=== PATIENT | male | born 1965 | race Caucasian/White ===

== ENCOUNTER → 2017-10-05 | Day surgery (SDC) | payer OTHER ==
[2017-09-30 13:31] LABS: BASOPHILS # (AUTO) 0.1 (0.0-0.1); BASOPHILS % 0.9 % (0.0-1.0); EOSINOPHILS # (AUTO) 0.8 (0.0-0.4); EOSINOPHILS % 5.3 % (0.0-6.0); HEMATOCRIT 45.4 % (38.2-49.6); LYMPHOCYTES # (AUTO) 3.1 (1.0-3.2); LYMPHOCYTES % 21.8 % (18.0-39.1); MEAN CORPUSCULAR HEMOGLOBIN 28.1 pg (28-32); MEAN CORPUSCULAR VOLUME 85.2 fL (81-99); MONOCYTES % 7.3 % (4.4-11.3); NEUTROPHILS # (AUTO) 9.1 (2.1-6.9); NEUTROPHILS % 64.3 % (38.7-80.0); PLATELET COUNT 397 x10e3/uL (140-360); RED BLOOD COUNT 5.33 x10e6/uL (4.3-5.7); RED CELL DISTRIBUTION WIDTH 13.8 % (11.7-14.4)
[~2017-10-05] MED LIST: ASPIR 8181 MG PO; ATORVASTATIN CA20 MG PO; CITALOPRAM PO; DULERA 100 MCG/13 GM INH; FENTANYL CITRATE/PF 100MCG/2 ML INJ ONE; LEVOTHYROXINE; LEVOTHYROXINE PO; LIDOCAINE HCL 2% LOCAL INJ 5 ML SDV VIAL INJ ONE; LOSARTAN POTASS25 MG PO; METOCLOPRAMIDE HCL 10 MG/2ML VIAL ONE; MIDAZOLAM HCL 2 MG/2 ML VIAL ONE; MULTIVITAMINS1 EAC8 PO; PANTOPRAZOLE 40 MG 10ML VIAL ONE; PANTOPRAZOLE SO40 MG PO; PAXIL40 MG PO; PRO AIR INH; PROPOFOL IV EMULSION 10 MG/ML 50 ML VIAL ONE; TESTOSTERONE
--- OUTSIDE RECORDS SUMMARY | 2017-10-05 07:25 | XMS REPORT | Clinical Summary ---
Author Author [facility] Organization [facility] Address Unknown Phone Unavailable Care Team Providers Care Granite Installer Name Role Phone Rudy Jung MD PCP Allergies No Known Allergies Current Medications Prescription Sig. Disp. Refills Start End Date Status Date levothyroxine (SYNTHROID, Take 100 mcg by mouth. Active LEVOXYL) 100 mcg tablet pantoprazole (PROTONIX) Take 40 mg by mouth. 04/23/20 Active 40 MG EC tablet 16 atorvastatin (LIPITOR) 80 Take 80 mg by mouth Active MG tablet daily. losartan (COZAAR) 25 MG Take 25 mg by mouth Active tablet daily. MOMETASONE/FORMOTEROL Inhale 5 mcg. Active (DULERA INHL) albuterol (PROAIR Inhale 2 puffs every 6 Active HFA,PROVENTIL (six) hours as needed for HFA,VENTOLIN HFA) 90 wheezing. mcg/actuation inhaler aspirin (ECOTRIN) 81 MG Take 81 mg by mouth Active enteric coated tablet daily. PARoxetine (PAXIL) 40 MG Take 40 mg by mouth every Active tablet morning. atorvastatin (LIPITOR) 80 Take 80 mg by mouth. 04/23/20 04/23/20 MG tablet 16 17 buPROPion XL (WELLBUTRIN TK 1 T PO QD IN THE 1 12/11/19 04/29/20 Discontin XL) 150 MG 24 hr tablet MORNING 17 17 ued clopidogrel (PLAVIX) 75 Take 75 mg by mouth. 04/29/20 Discontin mg tablet 17 ued ELIQUIS 5 mg tablet TK 1 T PO BID 3 11/17/19 04/29/20 Discontin 17 17 ued losartan (COZAAR) 25 MG Take 25 mg by mouth. 04/23/20 04/23/20 tablet 16 17 sotalol (BETAPACE) 80 MG TK 1 T PO BID 2 10/10/19 04/29/20 Discontin tablet 17 17 ued isosorbide mononitrate Take 30 mg by mouth 04/29/20 Discontin (IMDUR) 30 MG 24 hr daily. 17 ued tablet VENTOLIN HFA 90 INHALE 2 PUFFS PO QID 11 01/18/20 04/29/20 Discontin mcg/actuation inhaler 17 17 ued ADVAIR HFA 115-21 INHALE 2 PUFFS PO BID 11 01/10/20 04/29/20 Discontin mcg/actuation inhaler 17 17 ued predniSONE (DELTASONE) 10 1 01/22/20 04/29/20 Discontin mg tablet 17 17 ued PARoxetine (PAXIL) 20 MG Take 20 mg by mouth every 10/02/19 Discontin tablet morning. 18 ued aspirin (ECOTRIN) 81 MG Take 81 mg by mouth 05/12/20 Discontin enteric coated tablet daily. 17 ued traMADol (ULTRAM) 50 mg Take 1 tablet (50 mg 45 tablet 0 05/12/20 Discontin tablet total) by mouth every 6 17 17 ued (six) hours as needed for moderate pain for up to 14 days. acetaminophen (TYLENOL Take 1 tablet (500 mg 60 tablet 0 05/12/20 Discontin EXTRA STRENGTH) 500 MG total) by mouth every 6 17 ued tablet (six) hours as needed for mild pain for up to 30 days. traMADol (ULTRAM) 50 mg Take 1 tablet (50 mg 45 tablet 0 05/12/20 tablet total) by mouth every 6 17 17 (six) hours as needed for moderate pain for up to 14 days. acetaminophen (TYLENOL Take 1 tablet (500 mg 60 tablet 0 05/12/20 EXTRA STRENGTH) 500 MG total) by mouth every 6 17 tablet (six) hours as needed for mild pain for up to 30 days. Active Problems Problem Noted Date Coronary artery disease 10/01/2017 Overview: H/o STEMI S/P PCI Shortness of breath 10/01/2017 ST elevation myocardial infarction (STEMI) Stented coronary artery Cancer Overview: lymphoma Encounters Date Type Specialty Care Team Description 10/01/2017 Hospital Radiology Pedro Barbour MD Arrived Encounter 10/01/2017 Office Visit Cardiothoracic Surgery Pedro Barbour MD LAD (lymphadenopathy), mediastinal (Primary Dx); H/O non-Hodgkin's lymphoma; Pre-op testing; History of palpitations; Shortness of breath 10/01/2017 Ancillary Radiology Pedro Barbour MD Orders 10/01/2017 Orders Only Cardiothoracic Surgery Cielo Núñez MD 08/11/2017 [facility] Radiology Chintan Hooper MD [place] Encounter esophageal sphincter; Cough 08/04/2017 Transcribe Access Chintan Hooper MD [place] Orders esophageal sphincter (Primary Dx); Cough 07/13/2017 Hospital Radiology Chintan Hooper MD Pulmonary infarction; Encounter Shortness of breath 07/09/2017 Transcribe Chintan Cuevas MD Pulmonary infarction Orders (Primary Dx); Shortness of breath 06/11/2017 Office Visit Cardiothoracic Surgery Pedro Barbour MD Visit for wound check (Primary Dx) 05/18/2017 Telephone Cardiothoracic Surgery Pedro Barbour MD 05/12/2017 [facility] Cardiothoracic Surgery Pedro Barbour MD Lymphadenopathy syndrome Encounter 05/12/2017 Anesthesia Cardiothoracic Surgery Julissa Erazo MD Event 05/12/2017 Procedure Pass Cardiothoracic Surgery 05/12/2017 Surgery Cardiothoracic Surgery Pedro Barbour MD MEDIASTINOSCOPY W/ BIOPSY, 05/07/2017 Lab Lab Pedro Barbour MD LAD (lymphadenopathy), mediastinal; Pre-op testing 05/07/2017 Office Visit Cardiothoracic Surgery Pedro Barbour MD LAD (lymphadenopathy), mediastinal (Primary Dx); Pre-op testing 05/04/2017 Orders Only Cardiothoracic Surgery Cielo Núñez MD 04/29/2017 [facility] Ophthalmology Sriram Acosta, Encounter MD 04/29/2017 Anesthesia Ophthalmology Michael Nettles MD Event 04/29/2017 Procedure Pass Ophthalmology 04/29/2017 Surgery Ophthalmology Sriram Acosta, BRONCHOSCOPY WITH EBUS & MD BIOPSY 03/05/2017 [facility] Cardiac Rehabilitation Denny Ruiz MD Encounter 03/04/2017 [facility] Cardiac Rehabilitation Denny Ruiz MD Encounter 03/03/2017 Office Visit Sports Kelin Nicole MD Primary osteoarthritis of both shoulders (Primary Dx); Disorder of right rotator cuff 02/27/2017 Telephone Sports Kelin Nicole MD 02/18/2017 Hospital Cardiac Rehabilitation Denny Ruiz MD Encounter 02/17/2017 Hospital Radiology Kelin Javier MD Disorder of rotator cuff Encounter of both shoulders; Primary osteoarthritis of left shoulder 02/17/2017 Hospital Radiology Kelin Javier MD Disorder of rotator cuff Encounter of both shoulders; Primary osteoarthritis of left shoulder 02/16/2017 Hospital Cardiac Rehabilitation Encounter 02/12/2017 Hospital Cardiac Rehabilitation Encounter 02/11/2017 Hospital Cardiac Rehabilitation Encounter 02/11/2017 Procedure Pass Radiology 02/11/2017 Procedure Pass Radiology 02/10/2017 Office Visit Sports Kelin Nicole MD Disorder of rotator cuff of both shoulders (Primary Dx); Primary osteoarthritis of left shoulder 02/09/2017 Hospital Cardiac Rehabilitation Encounter 02/09/2017 Documentation Sports Kelin Nicole MD 02/05/2017 Hospital Cardiac Rehabilitation Encounter 02/04/2017 Hospital Cardiac Rehabilitation Encounter 02/02/2017 Hospital Cardiac Rehabilitation Encounter 01/28/2017 Hospital Cardiac Rehabilitation Denny Ruiz MD Encounter 01/15/2017 Transcribe Cardiac Rehabilitation Denny Ruiz MD ST elevation myocardial Orders infarction (STEMI), unspecified artery (Primary Dx); Stented coronary artery 01/13/2017 [facility] Radiology Chintan Hooper MD Diaphragmatic paralysis Encounter 01/09/2017 Transcribe Access Chintan Hooper MD Diaphragmatic paralysis Orders (Primary Dx) 12/23/2016 Office Visit Sports Kelin Nicole MD Disorder of rotator cuff of both shoulders (Primary Dx); Bilateral shoulder pain, unspecified chronicity after 10/04/2016 Family History Medical History Relation Name Comments Heart disease Brother Thomas Babcock Diabetes Father Diabetes Mother Heart disease Mother Relation Name Status Comments Brother Thomas Babcock Father Mother Social History Tobacco Use Types Packs/Day Years Used Date Never Smoker Smokeless Tobacco: Never Used Alcohol Use Drinks/Week oz/Week Comments Yes Socially Sex Assigned at Date Recorded Not on file Last Filed Vital Signs Vital Sign Reading Time Taken Blood Pressure 127/84 10/01/2017 2:20 PM CDT Pulse 94 10/01/2017 2:20 PM CDT Temperature 37.1 C (98.7 F) 10/01/2017 2:20 PM CDT Respiratory Rate 15 10/01/2017 2:20 PM CDT Oxygen Saturation 94% 10/01/2017 2:20 PM CDT Inhaled Oxygen - - Concentration Weight 102 kg (224 lb) 10/01/2017 2:20 PM CDT Height 172.7 cm (5' 8") 10/01/2017 2:20 PM CDT Body Mass Index 34.06 10/01/2017 2:20 PM CDT Plan of Treatment Date Type Specialty Care Team Description 10/28/2017 Surgery Cardiothoracic Surgery Pedro Barbour MD RIGHT ROBOTIC ASSISTED [address] [facility] THORACOSCOPIC MEDIASTINAL [address] [place] [address] BIOPSY-DISSECTION, FLEXIBLE BRONSCOPY 10/28/2017 Procedure Pass Cardiothoracic Surgery 10/28/2017 [facility] Cardiothoracic Surgery Pedro Barbour MD Encounter [address] [facility] [address] [place], [place] [id number] Health Maintenance Due Date Last Done Comments COLONOSCOPY 2016 INFLUENZA VACCINE 01/27/2018 Procedures Procedure Name Priority Date/Time Associated Diagnosis Comments NV AN ELECTIVE Routine 05/12/2017 ENDOTRACHEAL AIRWAY 9:33 AM RECOVERY ROOM RN Procedure Note - Shivani Dominique MD - 05/12/2017 8:46 AM RECOVERY ROOM RN Airway Date/Time: 05/12/2017 7:35 AM Performed by: SHIVANI DOMINIQUE V Authorized by: SHIVANI DOMINIQUE V Urgency: Elective Difficult Airway: Yes Preoxygena noy with 100% O2: Yes C-spine Precaution s Maintained Throughout : No Mask Ventilatio n: Assisted mask Final Airway Type: Endotrache al airway Final Endotrache al Airway: ETT Cuffed: Yes Technique Used: Fiberoptic ETT Size (mm): 8.0 Cuff at minimum occlusion pressure: Yes Measured from: Lips Rapid Sequence Induction (RSI): No Grade IIB with DL, Proceeded to Video laryngosco py, able to put the tube in the trachea for approx 3 cms however unable to advance further. Patient intubated by with fibreoptic bronchosco pe. Trachea may be a little anterior below the cords leading to difficulty in advancemen t ARTERIAL LINE Routine 05/12/2017 8:50 AM RECOVERY ROOM RN Procedure Note - Shivani Dominique MD - 05/12/2017 8:49 AM RECOVERY ROOM RN Arterial line Performed by: SHIVANI DOMINIQUE V Authorized by: SHIVANI DOMINIQUE V Start Time: 05/12/2017 8:00 AM Staff: Anesthesio logist: SHIVANI DOMINIQUE V Pre-proced ure: patient identified , IV checked, site and side verified, risks and benefits discussed, procedure verified, surgical consent complete, patient position confirmed, monitors and equipment checked and pre-op evaluation complete MSBT: antiseptic used, all elements of maximal sterile barrier technique followed, hand hygiene performed, cap/gown used by other personnel and solutions labeled Indication s: Indication s: multiple ABGs Anesthesia : Anesthesia : General Procedure Details: Arterial Line placement: Placed post induction Line placement site: Radial Line placement side: Right Arterial line gauge: 20 G Number of attempts: 1 Ultrasound guidance used: No Post-proce dure: Post-proce dure: Sterile dressing applied Post procedure circulatio n, sensation, movement: Normal Patient tolerance: Patient tolerated the procedure well with no immediate complicati ons NV AN ELECTIVE Routine 04/29/2017 SUPRAGLOTTIC AIRWAY 8:49 AM CDT Procedure Note - Michael Nettles MD - 04/29/2017 8:49 AM CDT Airway Date/Time: 04/29/2017 8:43 AM Performed by: MICHAEL NETTLES Authorized by: MICHAEL NETTLES Location: OR Urgency: Elective Performed by: anesthesio logist Preoxygena noy with 100% O2: Yes Final Airway Type: Supraglott ic airway Final LMA: Classic LMA Size: 5 Number of Attempts at Approach: 1 BRONCHOSCOPY WITH EBUS & 04/29/2017 Lymphadenopathy, BIOPSY 8:00 AM CDT mediastinal after 10/04/2016 Results * PET/CT Whole Body External Study (09/08/2017 12:37 PM) Specimen Performing Laboratory [address] [address] Narrative This exam was not acquired at a [facility] facility and has not been interpreted by a [facility] Provider.The exam was imported into our imaging system for comparisons purposes. * PET/CT Skull Base Mid Thigh External Study (09/08/2017) Only the most recent of 2 results within the time period is included. * FL Esophagram Complete (08/11/2017 9:12 AM) Specimen Performing Laboratory [facility] [address] [place] [address] Narrative EXAMINATION:FL ESOPHAGRAM COMPLETE CLINICAL HISTORY:K21.9 Gastro-esophageal reflux disease without esophagitis , R05 Cough, R05 K21.9 COMPARISON:None. Fluoroscopy time: 1.1 FINDINGS: The patient swallowed air producing granules and barium without difficulty. The esophagus demonstrates normal motility. No focal mucosal abnormality is identified. There is mild narrowing at distal esophagus/gastroesophageal junction.There is mild diffuse thickening of esophageal folds. There is no evidence of gastroesophageal reflux or hiatal hernia. IMPRESSION: There is minimal narrowing at distal esophagus/gastroesophageal junction and mild thickening of the esophageal folds without suspicious focal mucosal thickening. Please correlate to endoscopic findings. [id number] Procedure Note Interface, Radiology Results Incoming - 08/12/2017 8:55 AM RECOVERY ROOM RN EXAMINATION: FL ESOPHAGRAM COMPLETE CLINICAL HISTORY: K21.9 Gastro-esophageal reflux disease without esophagitis, R05 Cough, R05 K21.9 COMPARISON: None. Fluoroscopy time: 1.1 FINDINGS: The patient swallowed air producing granules and barium without difficulty. The esophagus demonstrates normal motility. No focal mucosal abnormality is identified. There is mild narrowing at distal esophagus/gastroesophageal junction. There is mild diffuse thickening of esophageal folds. There is no evidence of gastroesophageal reflux or hiatal hernia. IMPRESSION: There is minimal narrowing at distal esophagus/gastroesophageal junction and mild thickening of the esophageal folds without suspicious focal mucosal thickening. Please correlate to endoscopic findings. [id number] * CTA Chest W Wo Contrast (07/13/2017 7:48 AM) Specimen Performing Laboratory [facility] [address] [place] [address] Narrative EXAMINATION:CT ANGIOGRAM CHEST W WO CONTRAST CLINICAL HISTORY:I26.99 Other pulmonary embolism without acute cor pulmonale , R06.02 Shortness of breath, sob TECHNIQUE: Multiple CT angiographic images of the chest were obtained during intravenous administration of contrast. Multiple computerized reformatted images as well as 3-D volume rendered images were also obtained. CT scans are performed using radiation dose reduction techniques. Technical factors are evaluated and adjusted to ensure appropriate moderation of exposure. Automated dose management technology is applied to adjust radiation exposure while achieving a diagnostic quality image. COMPARISON:None. IMPRESSION: No evidence of pulmonary thromboembolism level of the subsegmental arteries on this technically adequate study. Mild scarring and/or linear atelectasis within the lung bases. No significant infiltrate, consolidation, pleural effusion or pneumothorax. A few scattered calcified granulomata. No suspicious pulmonary nodules or masses. Visualized thyroid is unremarkable. No significant supraclavicular, axillary, mediastinal adenopathy. Mild cardiomegaly. No pericardial effusion. Thoracic aorta and main pulmonary artery demonstrate normal caliber. Cholelithiasis without evidence of cholecystitis. Calcified granulomata within the spleen. Mild osseous degenerative changes. [id number] Procedure Note Hm Interface, Radiology Results Incoming - 07/13/2017 8:17 AM RECOVERY ROOM RN EXAMINATION: CT ANGIOGRAM CHEST W WO CONTRAST CLINICAL HISTORY: I26.99 Other pulmonary embolism without acute cor pulmonale, R06.02 Shortness of breath, sob TECHNIQUE: Multiple CT angiographic images of the chest were obtained during intravenous administration of contrast. Multiple computerized reformatted images as well as 3-D volume rendered images were also obtained. CT scans are performed using radiation dose reduction techniques. Technical factors are evaluated and adjusted to ensure appropriate moderation of exposure. Automated dose management technology is applied to adjust radiation exposure while achieving a diagnostic quality image. COMPARISON: None. IMPRESSION: No evidence of pulmonary thromboembolism level of the subsegmental arteries on this technically adequate study. Mild scarring and/or linear atelectasis within the lung bases. No significant infiltrate, consolidation, pleural effusion or pneumothorax. A few scattered calcified granulomata. No suspicious pulmonary nodules or masses. Visualized thyroid is unremarkable. No significant supraclavicular, axillary, mediastinal adenopathy. Mild cardiomegaly. No pericardial effusion. Thoracic aorta and main pulmonary artery demonstrate normal caliber. Cholelithiasis without evidence of cholecystitis. Calcified granulomata within the spleen. Mild osseous degenerative changes. [id number] * POC creatinine (07/13/2017 7:18 AM) Component Value Ref Range POC creatinine 1.0 0.8 - 1.5 mg/dl Specimen Performing Laboratory Blood [facility] DEPARTMENT OF PATHOLOGY AND GENOMIC MEDICINE [address] [place] [address] * Surgical pathology request (05/12/2017 9:25 AM) Component Value Ref Range Surgical pathology report See link below for PDF Lab Report Specimen Performing Laboratory [facility] PATHOLOGY [facility] MEDICINE [address] [place] [address] * Sodium level, syringe (05/12/2017 8:34 AM) Only the most recent of 2 results within the time period is included. Component Value Ref Range Sodium, syringe 137 135 - 148 mEq/L Specimen Performing Laboratory Blood [facility] PATHOLOGY AND [facility] MEDICINE [address] [place] [address] * Potassium, syringe (05/12/2017 8:34 AM) Only the most recent of 2 results within the time period is included. Component Value Ref Range Potassium, syringe 3.8 3.5 - 5.0 mEq/L Specimen Performing Laboratory Blood [facility] [place] [address] * Ionized calcium, arterial (05/12/2017 8:34 AM) Only the most recent of 2 results within the time period is included. Component Value Ref Range Ionized calcium, arterial 1.08 (L) 1.11 - 1.32 mmol/L Specimen Performing Laboratory Blood [facility] OF PATHOLOGY AND [facility] MEDICINE [address] [place] [address] * Hemoglobin, syringe (05/12/2017 8:34 AM) Only the most recent of 2 results within the time period is included. Component Value Ref Range Hemoglobin, syringe 13.3 (L) 14.0 - 18.0 g/dL Specimen Performing Laboratory Blood [facility] [place] [address] * Glucose level, syringe (05/12/2017 8:34 AM) Only the most recent of 2 results within the time period is included. Component Value Ref Range Glucose, syringe 117 (H) 65 - 99 mg/dL Specimen Performing Laboratory Blood [facility] [place] [address] * Arterial blood gas, corrected (05/12/2017 8:34 AM) Only the most recent of 2 results within the time period is included. Component Value Ref Range pH, arterial 7.38 7.35 - 7.45 pCO2, arterial 44 35 - 45 mmHg pO2, arterial 322 (H) 80 - 90 mmHg Temperature, Celsius 37.0 Degrees C O2 saturation, arterial 99 95 - 100 % pH, arterial corrected 7.38 pCO2, arterial corrected 44 mmHg pO2, arterial corrected 322 mmHg Base excess, arterial 0 -2 - 2 mEq/L Specimen Performing Laboratory Blood [facility] DEPARTMENT OF PATHOLOGY AND GENOMIC MEDICINE [address] [place] [address] * Prepare RBC (05/07/2017 3:15 PM) Component Value Ref Range Product name Red Blood Cells -1, Leukored Unit number [id number] Product code [id number] Dispense status Returned to not transfused Blood expiration date 20170618 Blood type code 7300 Blood type B POSITIVE Product name Red Blood Cells -1, Leukored Unit number [id number] Product code [id number] Dispense status Returned to not transfused Blood expiration date 20170618 Blood type code 7300 Blood type B POSITIVE Specimen Performing Laboratory [facility] DEPARTMENT OF PATHOLOGY AND GENOMIC MEDICINE [address] [place] [address] * Type and screen (05/07/2017 3:15 PM) Component Value Ref Range ABO grouping B Rh type POS Antibody screen (gel) NEG Specimen Performing Laboratory Blood [facility] DEPARTMENT OF PATHOLOGY AND GENOMIC MEDICINE [address] [place] [address] * Cytology (non-gynecological) request (04/29/2017 5:10 PM) Only the most recent of 3 results within the time period is included. Component Value Ref Range Cytology See link below for PDF Lab Report (non-gynecological) report Specimen Performing Laboratory [facility] DEPARTMENT OF PATHOLOGY AND GENOMIC MEDICINE [address] [place] [address] * Flow cytometry evaluation (04/29/2017 5:00 PM) Component Value Ref Range Flow cytometry evaluation See link below for PDF Lab Report Specimen Performing Laboratory [facility] DEPARTMENT OF PATHOLOGY AND GENOMIC MEDICINE [address] [place] [address] * POC panel 4 (04/29/2017 8:14 AM) Component Value Ref Range POC sodium 138Comment: Testing performed on the ISTAT 135 - 148 mEq/L instrument by TAMARA Tech [id number] POC potassium 3.6 3.5 - 5.0 mEq/L POC hematocrit 48 41 - 51 % POC glucose 109 (H) 65 - 99 mg/dL Specimen Performing Laboratory [facility] DEPARTMENT OF PATHOLOGY AND GENOMIC MEDICINE [address] [place] [address] * Prothrombin time with INR, I-Stat (04/29/2017 8:09 AM) Component Value Ref Range POC prothrombin time 12.0Comment: Testing performed on the ISTAT 11.0 - 14.5 sec instrument by TAMARA Zelaya [id number] POC INR 1.0 Comment: The International Normalized Ratio (INR) is a therapeutic monitoring tool for patients who are stable on oral anticoagulant therapy. An INR of 2.0-3.0 is suggested for deep vein thrombosis/pulmonary embolism. Specimen Performing Laboratory Blood [facility] DEPARTMENT OF PATHOLOGY AND GENOMIC MEDICINE [address] [place] [id number] * ECG 12 lead (04/29/2017 7:13 AM) Component Value Ref Range Ventricular rate 84 Atrial rate 84 NV interval 152 QRSD interval 88 QT interval 374 QTC interval 441 P axis 1 65 QRS axis 1 17 T wave axis 35 EKG impression Normal sinus rhythm-Normal ECG-In automated comparison with ECG of 29-JUL-2015 22:54,-premature atrial complexes are no longer present- Specimen Performing Laboratory [facility] [address] [place] [address] * Estimated GFR (04/29/2017 7:00 AM) Component Value Ref Range GFR Non Af Amer 71 mL/min/1.73 m2 GFR Af Amer 86 mL/min/1.73 m2 Comment: Chronic kidney disease: <60 mL/min/1.73m2 Kidney failure: <15 mL/min/1.73m2 The estimated GFR is calculated from the IDMS-traceable Modification of Diet in Renal Disease Equation. The accuracy of the calculation is poor when the creatinine is normal. Calculated values >90 mL/min/1.73m2 are not reported. This equation has not been validated in children (<18 years), women, the elderly (>70 years), or ethnic groups other than Caucasians and Americans. Specimen Performing Laboratory Plasma specimen [facility] DEPARTMENT OF PATHOLOGY AND GENOMIC MEDICINE [address] [place] [address] * Partial thromboplastin time, activated (04/29/2017 7:00 AM) Component Value Ref Range PTT 30.4 23.0 - 36.0 sec Comment: PTT therapeutic range for unfractionated heparin is 61.0-112.0 seconds which corresponds to Anti-Xa 0.3-0.7 U/ml. Specimen Performing Laboratory Blood [facility] DEPARTMENT OF PATHOLOGY AND [facility] MEDICINE [address] [place] [address] * Prothrombin time with INR (04/29/2017 7:00 AM) Component Value Ref Range Prothrombin time 13.6 12.0 - 15.0 sec INR 1.0 Comment: The International Normalized Ratio (INR) is a therapeutic monitoring tool for patients who are stable on oral anticoagulant therapy. An INR of 2.0-3.0 is suggested for deep vein thrombosis/pulmonary embolism. Specimen Performing Laboratory Blood [facility] PATHOLOGY AND [address] [address] * CBC with platelet and differential (04/29/2017 7:00 AM) Component Value Ref Range WBC 10.56 4.50 - 11.00 k/uL RBC 5.44 4.40 - 6.00 m/uL HGB 15.9 14.0 - 18.0 g/dL HCT 46.9 41.0 - 51.0 % MCV 86.2 82.0 - 100.0 fL MCH 29.2 27.0 - 34.0 pg MCHC 33.9 31.0 - 37.0 g/dL RDW - SD 40.6 37.0 - 55.0 fL MPV 10.1 8.8 - 13.2 fL Platelet count 340 150 - 400 k/uL Nucleated RBC 0.00 /100 WBC Neutrophils 64.2 39.0 - 69.0 % Lymphocytes 20.5 (L) 25.0 - 45.0 % Monocytes 10.3 (H) 0.0 - 10.0 % Eosinophils 3.6 0.0 - 5.0 % Basophils 0.7 0.0 - 1.0 % Immature granulocytes 0.7Comment: "Immature granulocytes" 0.0 - 1.0 % (promyelocytes, myelocytes, metamyelocytes) Specimen Performing Laboratory Blood [facility] DEPARTMENT OF PATHOLOGY AND [address] [address] * Basic metabolic panel (04/29/2017 7:00 AM) Component Value Ref Range Sodium 141 135 - 148 mEq/L Potassium 3.9 3.5 - 5.0 mEq/L Chloride 102 98 - 112 mEq/L CO2 24 24 - 31 mEq/L Anion gap 15 7 - 15 mEq/L Comment: Starting from September , anion gap calculation no longer incorporates potassium. Please note the change. BUN 19 6 - 20 mg/dL Creatinine 1.1 0.7 - 1.2 mg/dL Glucose 108 (H) 65 - 99 mg/dL Calcium 8.9 8.3 - 10.2 mg/dL Specimen Performing Laboratory Plasma specimen [facility] DEPARTMENT OF PATHOLOGY AND GENOMIC MEDICINE [address] [place] [id number] * MRI Shoulder Wo Contrast Right (02/17/2017 4:35 PM) Specimen Performing Laboratory [facility] [address] [place] [address] Narrative Procedure:MRI SHOULDER WO CONTRAST RIGHT REFERRING PHYSICIAN:KELIN JAVIER HISTORY: Persistent shoulder pain, despite physical therapy and injection. Unspecified disorder of synovium and tendonright shoulder, M67.912 Unspecified disorder of synovium and tendonleft shoulder, Persisting shoulder pain despite physical therapy and injection. COMPARISON: None TECHNIQUE: Multiplanar and multisequence MRI were obtained of the [facility]. FINDINGS: ROTATOR CUFF and ASSOCIATED STRUCTURES: Rotator cuff: Thickened and heterogeneous increased signal intensity are seen of the supraspinatus tendon, infraspinatus tendon and subscapularis tendon, suggestive of tendinosis. There is no full-thickness or bursal/articular surface partial rotator cuff tear. The subscapularis constinuent of the rotator cuff is intact. Bursa: No bursal effusion or thickening is seen. Musculature: There is no muscular tear, contusion or atrophy. Acromioclavicular joint: Moderate degenerative changes of the AC joint with inferior spurring causing encroachment on the rotator cuff.. A type I acromial configuration is noted. There is no anterior or lateral acromial downsloping. OSSEOUS STRUCTURES: Subchondral fibrocystic changes of the humeral head is noted. There are no fracture or regions of abnormal bone marrow signal intensity. THE BICIPITAL TENDON: The biceps tendon is normally situated within the bicipital groove. No complete or partial biceps tendon tear is seen. GLENOHUMERAL JOINT: Joint fluid: No joint effusion. Cartilage and bone: No focal hyaline cartilage defects are noted. No Hill-Sachs , reverse Hill-Sachs or bony Bankart lesions are seen. Labrum: There are no SLAP or soft tissue Bankart lesions. No paralabral cyst is seen. Other support structures: Thickening of the inferior glenohumeral ligament is seen, suggestive of adhesive capsulitis.. OTHER FINDINGS: None. IMPRESSION: Finding suggesting of tendinosis of the rotator cuff. Findings suggestive of adhesive capsulitis of the right shoulder. Moderate AC joint arthropathy causing encroachment on the rotator cuff. No MRI evidence of rotator cuff tear or labral tear.. [facility]-[id number] Procedure Note Interface, Radiology Results - 02/17/2017 6:36 PM CDT Procedure:MRI SHOULDER WO CONTRAST RIGHT REFERRING PHYSICIAN:KELIN JAVIER HISTORY: Persistent shoulder pain, despite physical therapy and injection. Unspecified disorder of synovium and tendon right shoulder, M67.912 Unspecified disorder of synovium and tendon left shoulder, Persisting shoulder pain despite physical therapy and injection. COMPARISON: None TECHNIQUE: Multiplanar and multisequence MRI were obtained of the [facility]. FINDINGS: ROTATOR CUFF and ASSOCIATED STRUCTURES: Rotator cuff: Thickened and heterogeneous increased signal intensity are seen of the supraspinatus tendon, infraspinatus tendon and subscapularis tendon, suggestive of tendinosis. There is no full-thickness or bursal/articular surface partial rotator cuff tear. The subscapularis constinuent of the rotator cuff is intact. Bursa: No bursal effusion or thickening is seen. Musculature: There is no muscular tear, contusion or atrophy. Acromioclavicular joint: Moderate degenerative changes of the AC joint with inferior spurring causing encroachment on the rotator cuff.. A type I acromial configuration is noted. There is no anterior or lateral acromial downsloping. OSSEOUS STRUCTURES: Subchondral fibrocystic changes of the humeral head is noted. There are no fracture or regions of abnormal bone marrow signal intensity. THE BICIPITAL TENDON: The biceps tendon is normally situated within the bicipital groove. No complete or partial biceps tendon tear is seen. GLENOHUMERAL JOINT: Joint fluid: No joint effusion. Cartilage and bone: No focal hyaline cartilage defects are noted. No Hill-Sachs , reverse Hill-Sachs or bony Bankart lesions are seen. Labrum: There are no SLAP or soft tissue Bankart lesions. No paralabral cyst is seen. Other support structures: Thickening of the inferior glenohumeral ligament is seen, suggestive of adhesive capsulitis.. OTHER FINDINGS: None. IMPRESSION: Finding suggesting of tendinosis of the rotator cuff. Findings suggestive of adhesive capsulitis of the right shoulder. Moderate AC joint arthropathy causing encroachment on the rotator cuff. No MRI evidence of rotator cuff tear or labral tear.. [facility]-[id number] * MRI Shoulder Wo Contrast Left (02/17/2017 4:02 PM) Specimen Performing Laboratory [facility] [address] [place] [id number] Narrative EXAMINATION:MRI SHOULDER WO CONTRAST LEFT CLINICAL HISTORY:M67.911 Unspecified disorder of synovium and tendon right shoulder, M67.912 Unspecified disorder of synovium and tendonleft shoulder, Persisting shoulder pain despite subacromial injection and physical therapy. Acromioclavicular pathology versus rotator cuff tear. TECHNIQUE:Multiplanar multisequence MR imaging of the shoulder was performed following dilute intra-articular administration of gadolinium. COMPARISON:X-rays a 12/23/2016 FINDINGS: 1. Rotator cuff: Intact. The supraspinatus, infraspinatus, subscapularis and teres minor tendons intact. 2. Bursa: Minimal subacromial bursal fluid and inflammatory change. 3. Biceps tendon: Long head of the biceps tendon is intact. Disproportionate fluid around the extra articular biceps tendon can be seen with biceps tenosynovitis. 4. Labrum: Signal undercutting the superior labrum posterior to the biceps anchor likely represents a superior labral tear. The remainder of the labrum is intact. 5. AC joint: Moderate AC joint osteoarthritis with capsular hypertrophy as well as AC joint edema and mass effect and narrowing of the supraspinatus outlet. Findings can be associated with external impingement. 6. Glenohumeral joint: Intact. Satisfactory alignment. Osseous glenoid intact. 7. Articular cartilage: Articular cartilage intact. 8. Joint Fluid:No joint effusion. Physiologic joint fluid. 9. Bone marrow: Moderate AC joint degenerative edema as well as small AC joint effusion. 10. Soft tissues: No mass, fluid collection or hematoma. IMPRESSION: 1.Moderate AC joint osteoarthritis, inflammatory change with minimal bursal fluid. Correlate with External impingement. 2.Extra-articular biceps tenosynovitis. 3.Probable superior labral tear. [facility]-[id number] Procedure Note Interface, Radiology Results - 02/17/2017 4:45 PM CDT EXAMINATION: MRI SHOULDER WO CONTRAST LEFT CLINICAL HISTORY: M67.911 Unspecified disorder of synovium and tendon right shoulder, M67.912 Unspecified disorder of synovium and tendon left shoulder, Persisting shoulder pain despite subacromial injection and physical therapy. Acromioclavicular pathology versus rotator cuff tear. TECHNIQUE: Multiplanar multisequence MR imaging of the shoulder was performed following dilute intra-articular administration of gadolinium. COMPARISON: X-rays a 12/23/2016 FINDINGS: 1. Rotator cuff: Intact. The supraspinatus, infraspinatus, subscapularis and teres minor tendons intact. 2. Bursa: Minimal subacromial bursal fluid and inflammatory change. 3. Biceps tendon: Long head of the biceps tendon is intact. Disproportionate fluid around the extra articular biceps tendon can be seen with biceps tenosynovitis. 4. Labrum: Signal undercutting the superior labrum posterior to the biceps anchor likely represents a superior labral tear. The remainder of the labrum is intact. 5. AC joint: Moderate AC joint osteoarthritis with capsular hypertrophy as well as AC joint edema and mass effect and narrowing of the supraspinatus outlet. Findings can be associated with external impingement. 6. Glenohumeral joint: Intact. Satisfactory alignment. Osseous glenoid intact. 7. Articular cartilage: Articular cartilage intact. 8. Joint Fluid:No joint effusion. Physiologic joint fluid. 9. Bone marrow: Moderate AC joint degenerative edema as well as small AC joint effusion. 10. Soft tissues: No mass, fluid collection or hematoma. IMPRESSION: 1. Moderate AC joint osteoarthritis, inflammatory change with minimal bursal fluid. Correlate with External impingement. 2. Extra-articular biceps tenosynovitis. 3. Probable superior labral tear. 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 TECHNIQUE: Diaphragms were observed under fluoroscopy during quiet and deep breathing and with sniff testing. FLUOROSCOPIC TIME:0.6 minutes. 6 spot films were obtained. FINDINGS: There is appropriate movement of the hemidiaphragms throughout the exam. No paradoxical motion. IMPRESSION: No fluoroscopic evidence of diaphragmatic paralysis. 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 TECHNIQUE: Diaphragms were observed under fluoroscopy during quiet and deep breathing and with sniff testing. FLUOROSCOPIC TIME: 0.6 minutes. 6 spot films were obtained. FINDINGS: There is appropriate movement of the hemidiaphragms throughout the exam. No paradoxical motion. IMPRESSION: No fluoroscopic evidence of diaphragmatic paralysis. [id number] * XR Shoulders Bilateral (12/23/2016 3:25 PM) Specimen Performing Laboratory [facility] [address] [place] [address] Narrative 8 views of the bilateral shoulders show no acute fractures. The glenohumeral joint appears normal bilaterally. There is widening of the superior aspect of the left acromioclavicular joint concerning for osteolysis in this location. after 10/04/2016 Insurance Payer Benefit Subscriber ID Type Phone Address Plan / Group [facility] xxxxxxxxx HMO/PPO THCARE CHOICE/CHO ICE +
--- OUTSIDE RECORDS SUMMARY | 2017-10-05 07:25 | XMS REPORT | Clinical Summary ---
Author Author [facility] Organization [facility] Address Unknown Phone Unavailable Care Team Providers Care Commercial Singer Name Role Phone PCP Unavailable Allergies No Known Allergies Current Medications Prescription Sig. Disp. Refills Start End Date Status Date levothyroxine (SYNTHROID, Take 100 mcg by mouth Active LEVOTHROID) 100 MCG Every morning on an empty tabletIndications: stomach. hypothyroidism pantoprazole (PROTONIX) Take 1 tablet (40 mg 30 tablet 0 04/23/20 Active 40 MG tablet total) by mouth daily. 16 clopidogrel (PLAVIX) 75 Take 75 mg by mouth Active mg tablet daily. apixaban (ELIQUIS) 5 mg Take 5 mg by mouth 2 Active Tab tablet (two) times daily. sotalol AF (BETAPACE AF) Take 80 mg by mouth 2 Active 80 MG tablet (two) times daily. citalopram (CELEXA) 20 MG Take 20 mg by mouth 11/08/19 Discontin tablet nightly. 17 ued ranitidine (ZANTAC) 150 Take 150 mg by mouth 2 11/07/19 Discontin MG tablet (two) times daily. 17 ued amiodarone (PACERONE) 200 Take 2 tabs (400 mg) BID 84 tablet 0 11/08/19 Discontin MG tablet for one week. 16 17 ued Thereafter, take 1 tab (200 mg) BID. aspirin 81 MG chewable Take 1 tablet (81 mg 30 tablet 11 04/23/20 Discontin tablet total) by mouth daily. 16 17 ued atorvastatin (LIPITOR) 80 Take 1 tablet (80 mg 30 tablet 0 04/23/20 04/23/20 MG tablet total) by mouth daily. 16 17 losartan (COZAAR) 25 MG Take 1 tablet (25 mg 30 tablet 0 04/23/20 tablet total) by mouth daily. 16 17 metoprolol (TOPROL-XL) 25 Take 1 tablet (25 mg 60 tablet 0 04/23/20 11/07/19 Discontin MG 24 hr tablet total) by mouth 2 (two) 16 17 ued times daily. ticagrelor (BRILINTA) 90 Take 1 tablet (90 mg 60 tablet 11 04/23/20 11/07/19 Discontin mg Tab tablet total) by mouth 2 (two) 16 17 ued times daily. amiodarone (PACERONE) 200 Take 1 tablet (200 mg 84 tablet 0 11/08/19 11/08/19 Discontin MG tablet total) by mouth daily 17 17 ued Take 2 tabs (400 mg) BID for one week. Thereafter, take 1 tab (200 mg) BID. Active Problems Problem Noted Date A-fib ([facility]) 11/06/2016 ST elevation myocardial infarction (STEMI) of inferior wall ([facility]) 04/19/2016 Atherosclerosis of [place] coronary artery with unstable angina pectoris ([facility]) Hypothyroidism 04/19/2016 S/P radiation therapy 04/19/2016 ADHD (attention deficit hyperactivity disorder) 04/19/2016 Amphetamine user 04/19/2016 ST elevation myocardial infarction involving right coronary artery ([facility]) Encounters Date Type Specialty Care Team Description 01/01/2017 Abstract Transplant Iris Morrissey 12/24/2016 Orders Only Lab Denny Ruiz MD Unstable angina ([facility]) (Primary Dx) 11/06/2016 [facility] Cardiology Samantha Gordillo MD Attention deficit - Encounter hyperactivity disorder 11/07/2016 (ADHD), unspecified ADHD type 11/06/2016 Anesthesia Garry Alegria, AA Event 11/06/2016 Surgery Samantha Gordillo MD EPS & ABLATION 11/05/2016 Hospital Radiology System, Provider Not In Chronic atrial Encounter Samantha Gordillo MD fibrillation ([facility]) 11/05/2016 Orders Only Samantha Gordillo MD 11/04/2016 Outside Orders Central Scheduling Samantha Gordillo MD Chronic atrial fibrillation ([facility]) (Primary Dx) after 10/04/2016 Family History Medical History Relation Name Comments Coronary artery disease Brother Coronary artery disease Father Coronary artery disease Mother Relation Name Status Comments Brother Father Mother Social History Tobacco Use Types Packs/Day Years Used Date Never Smoker Alcohol Use Drinks/Week oz/Week Comments No Sex Assigned at Date Recorded Not on file Last Filed Vital Signs Vital Sign Reading Time Taken Blood Pressure 98/69 11/07/2016 7:38 AM CDT Pulse 78 11/07/2016 7:38 AM CDT Temperature 36.7 C (98 F) 11/07/2016 7:38 AM CDT Respiratory Rate 19 11/07/2016 7:38 AM CDT Oxygen Saturation 98% 11/07/2016 7:38 AM CDT Inhaled Oxygen - - Concentration Weight 102.1 kg (225 lb 1.6 oz) 11/07/2016 7:38 AM CDT Height 172.7 cm (5' 8") 11/06/2016 7:21 AM CDT Body Mass Index 34.23 11/07/2016 7:38 AM CDT Plan of Treatment Not on file Implants Implanted Type Area Managing Cognitive Engineer Device Expiration Model / Identifier Date Serial / Lot Device Clsr Angio-Seal Vip 6fr Cardiovasc [employer] 02/26/2017 [id number] / [id number] - [id number] ular MED:CARDIAC / Implanted: Qty: 1 on 04/19/2016 by [id number] [id number] Denny Ruiz MD Synergy Stents-[employer] [place] 01/29/2017 [id number] Implanted: Qty: 1 on 04/19/2016 by SIMI [id number] / Denny Ruiz MD / [id number] Procedures Procedure Name Priority Date/Time Associated Diagnosis Comments EPS & ABLATION 11/06/2016 I48.2-PERSISTANT A FIB 9:56 AM CDT Case Notes (2) POP6 EPS/ABLATI ON WITH CRYO AND MICHAEL ANES Special Needs NAYELI /DELMER after 10/04/2016 Results * C-Reactive Protein (12/24/2016 8:50 AM) Component Value Ref Range CRP 0.29 0.00 - 0.50 mg/dL Specimen Performing Laboratory Blood [facility] [address] [address] * CBC with platelet count + automated diff (12/24/2016 8:50 AM) Only the most recent of 2 results within the time period is included. Component Value Ref Range WBC 12.7 (H) 4.0 - 10.0 K/ L RBC 5.16 4.20 - 5.80 M/ L Hemoglobin 14.5 13.0 - 16.8 GM/DL Hematocrit 46.3 40.0 - 50.0 % MCV 89.7 82.0 - 98.0 fL MCH 28.1 27.0 - 33.0 pg MCHC 31.3 (L) 32.0 - 36.0 GM/DL RDW 14.0 10.3 - 14.2 % Platelets 292 150 - 430 K/CU MM MPV 8.3 6.5 - 10.5 fL nRBC 0 0 - 0 /100 WBC % Neutros 72 % % Lymphs 19 % % Monos 7 % % Eos 1 % % Baso 0 % # Neutros 9.12 (H) 1.80 - 8.00 K/ L # Lymphs 2.42 1.48 - 4.50 K/ L # Monos 0.92 0.00 - 1.30 K/ L # Eos 0.18 0.00 - 0.50 K/ L # Baso 0.06 0.00 - 0.20 K/ L Specimen Performing Laboratory Blood [address] [address] Narrative 0.00 * CBC with platelet count + automated diff (12/24/2016 8:50 AM) Only the most recent of 2 results within the time period is included. Specimen Performing Laboratory Blood Narrative The following orders were created for panel order CBC with platelet count + automated diff. Procedure Abnormality Status --------- - ------ CBC with platelet count ...[[id number]]AbnormalFinal result Please view results for these tests on the individual orders. * TSH (12/24/2016 8:50 AM) Component Value Ref Range TSH 2.37 0.35 - 4.94 uIU/mL Specimen Performing Laboratory [address] [address] * T4, free (12/24/2016 8:50 AM) Component Value Ref Range Free T4 1.00 0.70 - 1.48 ng/dL Specimen Performing Laboratory [address] [address] * Lipid panel (12/24/2016 8:50 AM) Component Value Ref Range Triglycerides 107 mg/dL Cholesterol 101 mg/dL HDL 31 mg/dL LDL Calculated 49 mg/dL Specimen Performing Laboratory Blood [address] [address] Narrative Triglyceride Reference Range: Low Risk <150 [id number] High Risk 200-499 Very High Risk>=500 Cholesterol Reference Range: Low Risk <200 [id number] High Risk>240 HDL Cholesterol Reference Range: Low Risk >=60 High Risk <40 LDL Cholesterol Reference Range: Optimal<[id number] Hexu080-728 Very High >=190 * Comprehensive metabolic panel (12/24/2016 8:50 AM) Component Value Ref Range Protein, Total 7.4 6.0 - 8.3 gm/dL Albumin 4.1 3.5 - 5.0 g/dL Alkaline Phosphatase 93 40 - 150 U/L Total Bilirubin 0.3 0.2 - 1.2 mg/dL Sodium 139 136 - 145 meq/L Potassium 4.1 3.5 - 5.1 meq/L Chloride 106 98 - 107 meq/L CO2 24 22 - 29 meq/L BUN 18 7 - 21 mg/dL Creatinine 0.96 0.57 - 1.25 mg/dL Glucose 107 (H) 70 - 105 mg/dL Calcium 9.3 8.4 - 10.2 mg/dL AST 22 5 - 34 U/L ALT 34 6 - 55 U/L EGFR 83Comment: ESTIMATED GFR IS NOT ACCURATE mL/min/1.73 sq m CREATININE CLEARANCE IN PREDICTING GLOMERULAR FILTRATION RATE. ESTIMATED GFR IS NOT APPLICABLE FOR DIALYSIS PATIENTS. Specimen Performing Laboratory Blood [address] [address] * RHYTHM STRIP - SCAN (12/19/2016 8:20 AM) Only the most recent of 2 results within the time period is included. * CARDIAC CATH REPORT - SCAN (11/10/2016 10:40 AM) * Limited 2D Echocardiogram (11/07/2016 8:27 AM) Component Value Ref Range Ejection Fraction LV EF 39.9 % (63-77)* Index 18.6 %/m2 Specimen Performing Laboratory DIGISONICS Narrative Echocardiography Laboratory [address] [place] [address] Voice:[phone] Limited Transthoracic Echocardiogram Pat.Name:STEPHEN BABCOCK Pat.ID:[id number] St.Date: 11/07/2016 Refer.MD:SAMANTHA GORDILLO Exam Time: 8:27:00 AMStudy Type:Limited Echo Height:68inWeight:225lb BSA: 2.15 m2 DOBAge:1965,51Y Sex: MALEBP: 98/69 HR:78 bpmSonogrphr: JORGE Camp Pat. Stat.:Inpatient Room:[facility] Reason for Study:Sustained or Nonsustained Atrial Fib, SVT or VT History / Clinical:Coronary artery disease, STEMI, ADHD,HODGKINS LYMPHOMA,A-FIB,HYPOTHYROIDISM,HERNIA REPAIR Procedures:LIMITED 2D ECHOCARDIOGRAM SUMMARY: Left ventricular chamber size (by PSLAX dimension) is normal (male - LVIDd4.2-5.8 cm). All of the LV segments are mildly hypokinetic. LVEF by quantitative assessment is mildly reduced (40-44%). Degree (grade) of diastolic dysfunction is indeterminate. The right ventricular chamber size and systolic function are within normal limits. Estimated peak systolic PA pressure is 20-25 mmHg + RA pressure. No pericardial effusion is visualized. The estimated RA pressure by IVC dynamics 11-15 mmHg. FINDINGS: LV: All of the LV segments are mildly hypokinetic. No evidence ofLV hypertrophy. LVEF by quantitative assessment is mildlyreduced (40-44%). Left ventricular chamber size ( by PSLAXdimension) is normal (male - LVIDd4.2-5.8 cm). Degree(grade) of diastolic dysfunction is indeterminate. LA: LA size is normal (16-34 ml/m2). RV: The right ventricular chamber size and systolic function are withinnormal limits. RA: RA cavity size is normal. AV: Normal AoV structure and function. MV: Normal MV structure and function. TV: A trace of tricuspid regurgitation. TV structure is normal. Estimatedpeak systolic PA pressure is 20-25 mmHg + RA pressure. PV: PV is not well visualized. AO: Aortic root size (Sinus of Valsalva diameter) is normal. Pericard: No pericardial effusion is visualized. Systemic Veins: The estimated RA pressure by IVC dynamics 11-15 mmHg. MEASUREMENTS: 2D LV EF SinglePlane LV Ad 33 cm2(9.5-22.3)* LV CO 3.18 l/min LV As 22.7 cm2(4-11.6)* LV CI 1.48 l/min/m2 UKWHI602 ml (65-193) Index48.2 ml/ m2 LV SV 41.3 ml LVESV 62.3 mlHR 77 bpm Left Ventricle LV A% 31.3 % LA Sng Plane LA Vol71.7 mlIndex 33.4 ml/m2 LA Area 22.2 cm2(8.8-23.4) Parasternal Long [place] Ao An 2.04 cm (1.4-2.6) LV%fs 19.8 %(25-46)* Ao Rtd 3.3 cmLVPWd 1.1 cm IVSd 0.964 cm LA Ds 5.54 cm (2.3-3.9)* LVIDd 4.93 cm (4.3-5.1) LV Wmn1.03 cm LVIDs 3.95 cm (2-4) Signed 11/07/2016 10:11 AM Farzad Tavarez M.D. Procedure Note Interface, External Ris In - 11/07/2016 10:11 AM CDT Echocardiography Laboratory [address] [place] [address] Voice: [phone] Limited Transthoracic Echocardiogram Pat.Name: STEPHEN BABCOCK Pat.ID: [id number] St.Date: 11/07/2016 Refer.: SAMANTHA GORDILLO Exam Time: 8:27:00 AM Study Type:Limited Echo Height: 68in Weight: 225lb BSA: 2.15 m2 Age: 5 1965,51Y Sex: MALE BP: 98/69 HR: 78 bpm Sonogrphr: JORGE Camp Pat. Stat.:Inpatient Room: C6B33 Reason for Study:Sustained or Nonsustained Atrial Fib, SVT or VT History / Clinical:Coronary artery disease, STEMI, ADHD,HODGKINS LYMPHOMA,A-FIB,HYPOTHYROIDISM,HERNIA REPAIR Procedures:LIMITED 2D ECHOCARDIOGRAM SUMMARY: Left ventricular chamber size (by PSLAX dimension) is normal (male - LVIDd 4.2-5.8 cm). All of the LV segments are mildly hypokinetic. LVEF by quantitative assessment is mildly reduced (40-44%). Degree (grade) of diastolic dysfunction is indeterminate. The right ventricular chamber size and systolic function are within normal limits. Estimated peak systolic PA pressure is 20-25 mmHg + RA pressure. No pericardial effusion is visualized. The estimated RA pressure by IVC dynamics 11-15 mmHg. FINDINGS: LV: All of the LV segments are mildly hypokinetic. No evidence of LV hypertrophy. LVEF by quantitative assessment is mildly reduced (40-44%). Left ventricular chamber size (by PSLAX dimension) is normal (male - LVIDd 4.2-5.8 cm). Degree (grade) of diastolic dysfunction is indeterminate. LA: LA size is normal (16-34 ml/m2). RV: The right ventricular chamber size and systolic function are within normal limits. RA: RA cavity size is normal. AV: Normal AoV structure and function. MV: Normal MV structure and function. TV: A trace of tricuspid regurgitation. TV structure is normal. Estimated peak systolic PA pressure is 20-25 mmHg + RA pressure. PV: PV is not well visualized. AO: Aortic root size (Sinus of Valsalva diameter) is normal. Pericard: No pericardial effusion is visualized. Systemic Veins: The estimated RA pressure by IVC dynamics 11-15 mmHg. MEASUREMENTS: 2D LV EF SinglePlane LV Ad 33 cm2 (9.5-22.3)* LV CO 3.18 l/min LV As 22.7 cm2 (4-11.6)* LV CI 1.48 l/min/m2 LVEDV 104 ml (65-193) Index 48.2 ml/m2 LV SV 41.3 ml LVESV 62.3 ml HR 77 bpm Left Ventricle LV A% 31.3 % LA Sng Plane LA Vol 71.7 ml Index 33.4 ml/m2 LA Area 22.2 cm2 (8.8-23.4) Parasternal Long [place] Ao An 2.04 cm (1.4-2.6) LV%fs 19.8 % (25-46)* Ao Rtd 3.3 cm LVPWd 1.1 cm IVSd 0.964 cm LA Ds 5.54 cm (2.3-3.9)* LVIDd 4.93 cm (4.3-5.1) LV Wmn 1.03 cm LVIDs 3.95 cm (2-4) Signed 11/07/2016 10:11 AM Farzad Tavarez M.D. * aPTT (11/07/2016 4:54 AM) Only the most recent of 2 results within the time period is included. Component Value Ref Range PTT 30.3 22.5 - 36.0 seconds Specimen Performing Laboratory Blood - Arm, Left [address] [place] [address] * CBC (Hemogram only) (11/07/2016 4:54 AM) Component Value Ref Range WBC 15.8 (H) 4.0 - 10.0 K/ L RBC 4.55 4.20 - 5.80 M/ L Hemoglobin 13.9 13.0 - 16.8 GM/DL Hematocrit 41.0 40.0 - 50.0 % MCV 90.3 82.0 - 98.0 fL MCH 30.7 27.0 - 33.0 pg MCHC 34.0 32.0 - 36.0 GM/DL RDW 12.9 10.3 - 14.2 % Platelets 227 150 - 430 K/CU MM MPV 8.3 6.5 - 10.5 fL nRBC 0 0 - 0 /100 WBC Specimen Performing Laboratory Blood - Arm, [address] [address] Narrative 0.00 * Basic Metabolic Panel (11/07/2016 4:54 AM) Only the most recent of 2 results within the time period is included. Component Value Ref Range Sodium 137 136 - 145 meq/L Potassium 3.9 3.5 - 5.1 meq/L Chloride 106 98 - 107 meq/L CO2 22 22 - 29 meq/L BUN 21 7 - 21 mg/dL Creatinine 1.06 0.57 - 1.25 mg/dL Glucose 118 (H) 70 - 105 mg/dL Calcium 8.5 8.4 - 10.2 mg/dL EGFR 74Comment: ESTIMATED GFR IS NOT ACCURATE mL/min/1.73 sq m CREATININE CLEARANCE IN PREDICTING GLOMERULAR FILTRATION RATE. ESTIMATED GFR IS NOT APPLICABLE FOR DIALYSIS PATIENTS. Specimen Performing Laboratory Blood - Arm, [address] [address] * EKG 12 lead (11/07/2016 4:47 AM) Only the most recent of 2 results within the time period is included. Specimen Performing Laboratory GE MUSE Narrative Ventricular Rate 80 BPM Atrial Rate 80 BPM P-R Interval 162 ms QRS Duration 92 ms Q-T Interval 402 ms QTC Calculation(Bazett) 463 ms P [place] 58 degrees R [place] 24 degrees T [place] 16 degrees Normal sinus rhythm Normal ECG Confirmed by Erica STRATTON MICHAEL ([id number]) on 11/07/2016 7:04:30 AM Procedure Note Interface, External Ris In - 11/07/2016 7:04 AM CDT Ventricular Rate 80 BPM Atrial Rate 80 BPM P-R Interval 162 ms QRS Duration 92 ms Q-T Interval 402 ms QTC Calculation(Bazett) 463 ms P [place] 58 degrees R [place] 24 degrees T [place] 16 degrees Normal sinus rhythm Normal ECG Confirmed by Erica STRATTON MICHAEL ([id number]) on 11/07/2016 7:04:30 AM * POC ACTIVATED CLOTTING TIME (11/06/2016 3:34 PM) Only the most recent of 6 results within the time period is included. Component Value Ref Range Activated Clotting Time 126Comment: TESTED AT [address] [address] Specimen Performing Laboratory Blood [facility] [address] [address] * Transesophageal Echo for results (11/06/2016 8:22 AM) Specimen Performing Laboratory DIGISONICS Narrative Echocardiography Laboratory [address] [place] [address] Voice:[phone] Transesophageal Echocardiogram Pat.Name:STEPHEN BABCOCK Pat.ID:[id number] .Date: 11/06/2016 Refer.MD:SAMANTHA GORDILLO Exam Time: 8:22:00 AMStudy Type:THADDEUS Height:68inWeight:220lb BSA: 2.13 m2 DOBAge:1965,51Y Sex: MALEBP: 120/82 HR:91 bpmSonogrphr: Clay Tavarez [facility] Pat. Stat.:OutpatientRoom:OP Reason for Study:A-FIB, Sustained or Nonsustained Atrial Fib, SVT or VT History / Clinical:Coronary artery disease, STEMI, ADHD,HODGKINS LYMPHOMA,A-FIB,HYPOTHYROIDISM,HERNIA REPAIR Procedures:Doppler, Color Flow, Transesophageal, LIMITED 2D ECHOCARDIOGRAM FINDINGS: THADDEUS:The patient was counseled and an informed consent was obtained.Topical and intravenous anesthesia was administered.The esophagus was intubated without difficulty.The probe was passed and all standard echocardiographicviews were obtained. The patient toleratedthe procedure well. No complications were noted duringor following the procedure. LV: LVEF by quantitative assessment is mildly reduced. Left ventricularchamber size is normal. LA: LA size is mildly enlarged. LA appendage thrombus is not present.LA appendage velocities are reduced (<40 cm/s). RV: RV chamber size is normal. RA: RA cavity size is normal. IAS:IV saline contrast injection was negative for a PFO (patent foramenovale) at rest. AV: Normal AoV structure and function. Normal AoV structure. MV: Normal MV structure and function. Mild MV leaflet thickening.Nnqg-zt-embpkgpa mitral regurgitation. TV: A trace of tricuspid regurgitation. TV structure is normal. PV: Normal PV structure. AO: Aortic root size (Sinus of Valsalva diameter) is normal. Grade3 plaque (atheroma </=5 mm) in the descending thoracicaorta. Pericard: No pericardial effusion is visualized. THADDEUS: Pre TEEBP HR Post THADDEUS BP HR Meds:Benzacaine spray to oropharynx, Versed 5 mgm IV, Fentanyl 50 mcg IV Complications: None Condition: Good Signed 12/30/2016 10:11 PM hBumi Green M.D. Procedure Note Interface, External Ris In - 01/05/2017 9:13 AM CDT Echocardiography Laboratory [address] [place] [address] Voice: [phone] Transesophageal Echocardiogram Pat.Name: STEPHEN BABCOCK Erma.ID: [id number] .Date: 11/06/2016 Refer.MD: SAMANTHA GORDILLO Exam Time: 8:22:00 AM Study Type:THADDEUS Height: 68in Weight: 220lb BSA: 2.13 m2 Age: 5 1965,51Y Sex: MALE BP: 120/82 HR: 91 bpm Sonogrphr: Clay Tavarez [facility] Pat. Stat.:Outpatient Room: OP Reason for Study:A-FIB, Sustained or Nonsustained Atrial Fib, SVT or VT History / Clinical:Coronary artery disease, STEMI, ADHD,HODGKINS LYMPHOMA,A-FIB,HYPOTHYROIDISM,HERNIA REPAIR Procedures:Doppler, Color Flow, Transesophageal, LIMITED 2D ECHOCARDIOGRAM FINDINGS: THADDEUS: The patient was counseled and an informed consent was obtained. Topical and intravenous anesthesia was administered. The esophagus was intubated without difficulty. The probe was passed and all standard echocardiographic views were obtained. The patient tolerated the procedure well. No complications were noted during or following the procedure. LV: LVEF by quantitative assessment is mildly reduced. Left ventricular chamber size is normal. LA: LA size is mildly enlarged. LA appendage thrombus is not present. LA appendage velocities are reduced (<40 cm/s). RV: RV chamber size is normal. RA: RA cavity size is normal. IAS: IV saline contrast injection was negative for a PFO (patent foramen ovale) at rest. AV: Normal AoV structure and function. Normal AoV structure. MV: Normal MV structure and function. Mild MV leaflet thickening. Bcpt-zu-rrjskogk mitral regurgitation. TV: A trace of tricuspid regurgitation. TV structure is normal. PV: Normal PV structure. AO: Aortic root size (Sinus of Valsalva diameter) is normal. Grade 3 plaque (atheroma </=5 mm) in the descending thoracic aorta. Pericard: No pericardial effusion is visualized. THADDEUS: Pre THADDEUS BP HR Post THADDEUS BP HR Meds: Benzacaine spray to oropharynx, Versed 5 mgm IV, Fentanyl 50 mcg IV Complications: None Condition: Good Signed 12/30/2016 10:11 PM Bhumi Green M.D. * Type and screen, automated (11/06/2016 7:12 AM) Component Value Ref Range ABO/RH AUTOMATED (BEAKER) B POSITIVE Ab Scrn NEGATIVE Specimen Performing Laboratory Blood [facility] [address] [place] [address] * CT heart without & with gating & 3d (11/05/2016 12:50 PM) Specimen Performing Laboratory [employer] RIS Narrative Addendum Begins REPORT STATUS:A Addendum: November 05, 2016 at 1530 hours I have reviewed the CT images for this study and I concur with the nonvascular imaging findings as dictated. Signed: Samantha James MD Report Verified Date/Time:11/05/2016 15:26:03 Reading Location: [place] [id number] Angio Body Reading Room Addendum Ends FINAL REPORT CT angiography of the pulmonary veins, 05 Nov 2016 COMPARISON: None available INDICATION: This is a 51years old male with history of atrial fibrillation presented here for pulmonary vein ostial mapping. This study is performed in an attempt to avoid invasive procedure. TECHNIQUE:Spiral acquisition during intravenous contrast administration using a Makeda multidetector cardiac CT scanner without prospective ECG triggering.Multiplanar reconstructions were performed interactively by the interpreting physician using an independent (Vend[employer]sta) workstation. Please refer to the contrast sheet scanned in the Nualight system for the amount and route of contrast given. This exam was performed according to our departmental dose-optimisation programme, which includes automated exposure control, adjustment of the mA and/or kV according to patient size and/or use of iterative reconstruction technique FINDINGS: VASCULAR: The pericardium appears normal. No pericardial effusion is identified. The central pulmonary artery is normal in calibre. There is no evidence of central pulmonary artery embolism. The thoracic aorta is normal in course, calibre, and contour. There is no evidence for acute aortic pathology. The arch vessel branching pattern is normal, and the origins of the arch branch vessels are all widely patent. The cardiac chambers demonstrate normal atrioventricular and ventriculoarterial concordance, and systemic and pulmonary venous return. The left ventricle is normal in size, and no abnormal masses are identified.Minimal mitral annular calcification is identified in the anterior mitral valve annulus. The coronary artery origins are normal. Coronary artery calcifications identified in the right coronary territory. Left atrial enlargement is noted. Right atrial prominence is identified. No thrombus is visualized in the left atrial appendage. Pulmonary vein morphology is normal with pairs of pulmonary veins on each side of the left atrium. There is no evidence for pulmonary vein stenosis. Quantitative pulmonary vein ostial mapping (measured utilizing MPR analysis) is as follows: Pulmonary veinMajor axisMinor axisCross-sectional area * Right upper 21 mm 17 mm2.4 cm2 Right lower 20 mm 16 mm2.6 cm2 Left upper18 mm 16 mm2.2 cm2 Left lower 19 mm 18 mm2.4 cm2 NON-VASCULAR: The visualised thyroid gland appears grossly unremarkable. The chest wall and mediastinum appears normal. Scattered lymph nodes are seen in the mediastinum, in addition, there is also calcified lymph nodes indicating the presence of prior granulomatous disease. In the lung windows, no obvious endobronchial lesion is seen. No pleural effusions identified. Some subsegmental atelectatic changes are seen. Cataract granuloma is identified in the left. Overall, no suspicious pulmonary nodule is noted. The limited images of the upper abdomen reveal no significant abnormalities of the visualized organs. No acute bony pathology is identified. IMPRESSIONS: 1.The left atrium is enlarged. On further assessment, no thrombus is identified in the left atrial appendage. Scattered coronary artery calcification is seen, for example in the right coronary territory. 2.Pulmonary vein morphology is normal with pairs of pulmonary veins bilaterally.There is no evidence for pulmonary vein stenosis. Quantitative pulmonary vein ostial mapping is as noted above. 3.Normal thoracic aorta. 4.No acute pulmonary pathology. Evidence of prior granulomatous disease. 5.Other findings as described above. 6.An addendum will be dictated regarding the non-vascular findings by the Appraisal Analyst Radiologist. Signed: Ladarius Castle MD Report Verified Date/Time:11/05/2016 13:07:17 Reading Location: [place] [address] Cardiology MRI Procedure Note Interface, External Ris In - 11/05/2016 3:28 PM CDT Addendum Begins REPORT STATUS:A Addendum: November 05, 2016 at 1530 hours I have reviewed the CT images for this study and I concur with the nonvascular imaging findings as dictated. Signed: Samantha [place] MD Report Verified Date/Time: 11/05/2016 15:26:03 Reading Location: [place] [address] Angio Body Reading Room Addendum Ends FINAL REPORT CT angiography of the pulmonary veins, 05 Nov 2016 COMPARISON: None available INDICATION: This is a 51 years old male with history of atrial fibrillation presented here for pulmonary vein ostial mapping. This study is performed in an attempt to avoid invasive procedure. TECHNIQUE: Spiral acquisition during intravenous contrast administration using a [employer] multidetector cardiac CT scanner without prospective ECG triggering. Multiplanar reconstructions were performed interactively by the interpreting physician using an independent ([employer]) workstation. Please refer to the contrast sheet scanned in the EPIC system for the amount and route of contrast given. This exam was performed according to our departmental dose-optimisation programme, which includes automated exposure control, adjustment of the mA and/or kV according to patient size and/or use of iterative reconstruction technique FINDINGS: VASCULAR: The pericardium appears normal. No pericardial effusion is identified. The central pulmonary artery is normal in calibre. There is no evidence of central pulmonary artery embolism. The thoracic aorta is normal in course, calibre, and contour. There is no evidence for acute aortic pathology. The arch vessel branching pattern is normal, and the origins of the arch branch vessels are all widely patent. The cardiac chambers demonstrate normal atrioventricular and ventriculoarterial concordance, and systemic and pulmonary venous return. The left ventricle is normal in size, and no abnormal masses are identified. Minimal mitral annular calcification is identified in the anterior mitral valve annulus. The coronary artery origins are normal. Coronary artery calcifications identified in the right coronary territory. Left atrial enlargement is noted. Right atrial prominence is identified. No thrombus is visualized in the left atrial appendage. Pulmonary vein morphology is normal with pairs of pulmonary veins on each side of the left atrium. There is no evidence for pulmonary vein stenosis. Quantitative pulmonary vein ostial mapping (measured utilizing MPR analysis) is as follows: Pulmonary vein Major axis Minor axis Cross-sectional area * Right upper 21 mm 17 mm 2.4 cm2 Right lower 20 mm 16 mm 2.6 cm2 Left upper 18 mm 16 mm 2.2 cm2 Left lower 19 mm 18 mm 2.4 cm2 NON-VASCULAR: The visualised thyroid gland appears grossly unremarkable. The chest wall and mediastinum appears normal. Scattered lymph nodes are seen in the mediastinum, in addition, there is also calcified lymph nodes indicating the presence of prior granulomatous disease. In the lung windows, no obvious endobronchial lesion is seen. No pleural effusions identified. Some subsegmental atelectatic changes are seen. Cataract granuloma is identified in the left. Overall, no suspicious pulmonary nodule is noted. The limited images of the upper abdomen reveal no significant abnormalities of the visualized organs. No acute bony pathology is identified. IMPRESSIONS: 1. The left atrium is enlarged. On further assessment, no thrombus is identified in the left atrial appendage. Scattered coronary artery calcification is seen, for example in the right coronary territory. 2. Pulmonary vein morphology is normal with pairs of pulmonary veins bilaterally. There is no evidence for pulmonary vein stenosis. Quantitative pulmonary vein ostial mapping is as noted above. 3. Normal thoracic aorta. 4. No acute pulmonary pathology. Evidence of prior granulomatous disease. 5. Other findings as described above. 6. An addendum will be dictated regarding the non-vascular findings by the Appraisal Analyst Radiologist. Signed: Ladarius Castle MD Report Verified Date/Time: 11/05/2016 13:07:17 Reading Location: [facility] P0 Cardiology MRI * Magnesium (11/05/2016 11:41 AM) Component Value Ref Range Magnesium 2.3 1.6 - 2.6 mg/dL Specimen Performing Laboratory Blood [facility] [address] [address] after 10/04/2016
--- OUTSIDE RECORDS SUMMARY | 2017-10-05 07:26 | XMS REPORT ---
Author Author [facility] Address Unknown Phone Unavailable Care Team Providers Care Display Department Manager Name Role Phone MALACHI LILLIE Unavailable Unavailable SAMANTHA GORDILLO Unavailable Unavailable SYSTEM, PROVIDER Unavailable Unavailable Problems This patient has no known problems. Allergies, Adverse Reactions, Alerts This patient has no known allergies or adverse reactions. Medications This patient has no known medications. Results Test Description Test Time Test Comments Text Results Atomic Results Result Comments T4, FREE 2016-12-24 19:02:00 FREE T4 (BEAKER) (test ajbq=484) 1.00 ng/dL 0.70-1.48 [id number] 15:37:00* Test Item Value Reference Range Comments THYROID STIMULATING HORMONE (BEAKER) (test ggfz=892) 2.37 uIU/mL 0.35-4.94 LIPID [id number] 10:41:00* Test Item Value Reference Range Comments TRIGLYCERIDES (BEAKER) (test metg=661) 107 mg/dL CHOLESTEROL (BEAKER) (test wxpa=486) 101 mg/dL HDL CHOLESTEROL (BEAKER) (test tsnd=093) 31 mg/dL LDL CHOLESTEROL CALCULATED (BEAKER) (test cffd=037) 49 mg/dL Triglyceride Reference Range: Low Risk <150 Borderline 150-199 High Risk 200-499 Very High Risk >=500Cholesterol Reference Range: Low Risk <200 Borderline 200-239 High Risk >240HDL Cholesterol Reference Range: Low Risk >=60 High Risk <40LDL Cholesterol Reference Range: Optimal <100 Near Optimal 100-129 Borderline 130-159 High 160-189 Very High >=190 COMPREHENSIVE METABOLIC [id number] 10:41:00* Test Item Value Reference Range Comments TOTAL PROTEIN (BEAKER) (test qnjx=167) 7.4 gm/dL 6.0-8.3 ALBUMIN (BEAKER) (test fnhw=5513) 4.1 g/dL 3.5-5.0 ALKALINE PHOSPHATASE (BEAKER) (test turm=877) 93 U/L 40-150 BILIRUBIN TOTAL (BEAKER) (test cbrv=514) 0.3 mg/dL 0.2-1.2 SODIUM (BEAKER) (test gajp=664) 139 meq/L 136-145 POTASSIUM (BEAKER) (test eccv=775) 4.1 meq/L 3.5-5.1 CHLORIDE (BEAKER) (test fevt=080) 106 meq/L 98-107 CO2 (BEAKER) (test bekt=135) 24 meq/L 22-29 BLOOD UREA NITROGEN (BEAKER) (test qcae=422) 18 mg/dL 7-21 CREATININE (BEAKER) (test oofb=653) 0.96 mg/dL 0.57-1.25 GLUCOSE RANDOM (BEAKER) (test tply=462) 107 mg/dL 70-105 CALCIUM (BEAKER) (test mgin=781) 9.3 mg/dL 8.4-10.2 AST (SGOT) (BEAKER) (test wmzl=095) 22 U/L 5-34 ALT (SGPT) (BEAKER) (test dral=397) 34 U/L 6-55 EGFR (BEAKER) (test yzcc=0690) 83 mL/min/1.73 sq m ESTIMATED GFR IS NOT ACCURATE CREATININE CLEARANCE IN PREDICTING GLOMERULAR FILTRATION RATE. ESTIMATED GFR IS NOT APPLICABLE FOR DIALYSIS PATIENTS. C-REACTIVE [id number] 10:41:00* Test Item Value Reference Range Comments C-REACTIVE PROTEIN (BEAKER) (test wcrw=808) 0.29 mg/dL 0.00-0.50 CBC W/PLT COUNT & AUTO [id number] 10:31:00* Test Item Value Reference Range Comments WHITE BLOOD CELL COUNT (BEAKER) (test vhyp=279) 12.7 K/ L 4.0-10.0 RED BLOOD CELL COUNT (BEAKER) (test wyjb=801) 5.16 M/ L 4.20-5.80 HEMOGLOBIN (BEAKER) (test aspo=652) 14.5 GM/DL 13.0-16.8 HEMATOCRIT (BEAKER) (test cple=896) 46.3 % 40.0-50.0 MEAN CORPUSCULAR VOLUME (BEAKER) (test gfom=620) 89.7 fL 82.0-98.0 MEAN CORPUSCULAR HEMOGLOBIN (BEAKER) (test gdfs=243) 28.1 pg 27.0-33.0 MEAN CORPUSCULAR HEMOGLOBIN CONC (BEAKER) (test lwlb=831) 31.3 GM/DL 32.0- 36.0 RED CELL DISTRIBUTION WIDTH (BEAKER) (test muxl=464) 14.0 % 10.3-14.2 PLATELET COUNT (BEAKER) (test plgc=674) 292 K/CU MM 150-430 MEAN PLATELET VOLUME (BEAKER) (test mtzz=616) 8.3 fL 6.5-10.5 NUCLEATED RED BLOOD CELLS (BEAKER) (test mlfc=598) 0 /100 WBC 0-0 NEUTROPHILS RELATIVE PERCENT (BEAKER) (test szgz=184) 72 % LYMPHOCYTES RELATIVE PERCENT (BEAKER) (test ykln=097) 19 % MONOCYTES RELATIVE PERCENT (BEAKER) (test rexh=055) 7 % EOSINOPHILS RELATIVE PERCENT (BEAKER) (test mhod=318) 1 % BASOPHILS RELATIVE PERCENT (BEAKER) (test kwhx=716) 0 % NEUTROPHILS ABSOLUTE COUNT (BEAKER) (test jmcq=339) 9.12 K/ L 1.80-8.00 LYMPHOCYTES ABSOLUTE COUNT (BEAKER) (test yyzg=402) 2.42 K/ L 1.48-4.50 MONOCYTES ABSOLUTE COUNT (BEAKER) (test cafz=079) 0.92 K/ L 0.00-1.30 EOSINOPHILS ABSOLUTE COUNT (BEAKER) (test yilu=096) 0.18 K/ L 0.00-0.50 BASOPHILS ABSOLUTE COUNT (BEAKER) (test bhdv=892) 0.06 K/ L 0.00-0.20 0.00BASIC METABOLIC [id number] 05:46:00* Test Item Value Reference Range Comments SODIUM (BEAKER) (test hhjj=248) 137 meq/L 136-145 POTASSIUM (BEAKER) (test jrtg=263) 3.9 meq/L 3.5-5.1 CHLORIDE (BEAKER) (test oxtk=851) 106 meq/L 98-107 CO2 (BEAKER) (test fcgd=558) 22 meq/L 22-29 BLOOD UREA NITROGEN (BEAKER) (test ehje=455) 21 mg/dL 7-21 CREATININE (BEAKER) (test edho=695) 1.06 mg/dL 0.57-1.25 GLUCOSE RANDOM (BEAKER) (test ylhg=750) 118 mg/dL 70-105 CALCIUM (BEAKER) (test zyui=620) 8.5 mg/dL 8.4-10.2 EGFR (BEAKER) (test wybo=0113) 74 mL/min/1.73 sq m ESTIMATED GFR IS NOT ACCURATE CREATININE CLEARANCE IN PREDICTING GLOMERULAR FILTRATION RATE. ESTIMATED GFR IS NOT APPLICABLE FOR DIALYSIS PATIENTS. [id number] 05:32:00* Test Item Value Reference Range Comments PARTIAL THROMBOPLASTIN TIME (BEAKER) (test mjdg=630) 30.3 seconds 22.5-36.0 CBC (HEMOGRAM ONLY)2016-11-07 05:27:00* Test Item Value Reference Range Comments WHITE BLOOD CELL COUNT (BEAKER) (test qqfy=404) 15.8 K/ L 4.0-10.0 RED BLOOD CELL COUNT (BEAKER) (test oibu=065) 4.55 M/ L 4.20-5.80 HEMOGLOBIN (BEAKER) (test dlsq=340) 13.9 GM/DL 13.0-16.8 HEMATOCRIT (BEAKER) (test xmfn=075) 41.0 % 40.0-50.0 MEAN CORPUSCULAR VOLUME (BEAKER) (test ojso=112) 90.3 fL 82.0-98.0 MEAN CORPUSCULAR HEMOGLOBIN (BEAKER) (test gcfa=559) 30.7 pg 27.0-33.0 MEAN CORPUSCULAR HEMOGLOBIN CONC (BEAKER) (test fkcg=586) 34.0 GM/DL 32.0- 36.0 RED CELL DISTRIBUTION WIDTH (BEAKER) (test jvpy=672) 12.9 % 10.3-14.2 PLATELET COUNT (BEAKER) (test oykk=344) 227 K/CU MM 150-430 MEAN PLATELET VOLUME (BEAKER) (test fhpr=148) 8.3 fL 6.5-10.5 NUCLEATED RED BLOOD CELLS (BEAKER) (test xwnt=903) 0 /100 WBC 0-0 [id number] 20:25:00* Test Item Value Reference Range Comments PARTIAL THROMBOPLASTIN TIME (BEAKER) (test anbi=994) 28.9 seconds 22.5-36.0 Prior to initiating [id number] 15:43:00* Test Item Value Reference Range Comments ACTIVATED CLOTTING TIME (BEAKER) (test urgs=231) 126 sec TESTED AT [place] [address] [id number] 14:10:00* Test Item Value Reference Range Comments ACTIVATED CLOTTING TIME (BEAKER) (test qjrk=860) 307 sec TESTED AT [place] [address] [id number] 13:55:00* Test Item Value Reference Range Comments ACTIVATED CLOTTING TIME (BEAKER) (test usqt=496) 291 sec TESTED AT [place] [address] [id number] 13:54:00* Test Item Value Reference Range Comments ACTIVATED CLOTTING TIME (BEAKER) (test veaf=328) 343 sec TESTED AT [place] [address] [id number] 13:29:00* Test Item Value Reference Range Comments ACTIVATED CLOTTING TIME (BEAKER) (test teql=153) 291 sec TESTED AT [place] [address] [id number] 13:28:00* Test Item Value Reference Range Comments ACTIVATED CLOTTING TIME (BEAKER) (test mqcb=005) 296 sec TESTED AT [place] [address] [id number] 12:10:00* Test Item Value Reference Range Comments MAGNESIUM (BEAKER) (test tokt=106) 2.3 mg/dL 1.6-2.6 BASIC METABOLIC [id number] 12:10:00* Test Item Value Reference Range Comments SODIUM (BEAKER) (test hysp=312) 141 meq/L 136-145 POTASSIUM (BEAKER) (test toyr=851) 4.5 meq/L 3.5-5.1 CHLORIDE (BEAKER) (test jzwo=602) 106 meq/L 98-107 CO2 (BEAKER) (test jvcx=285) 27 meq/L 22-29 BLOOD UREA NITROGEN (BEAKER) (test gzlx=499) 26 mg/dL 7-21 CREATININE (BEAKER) (test dxqe=240) 1.22 mg/dL 0.57-1.25 GLUCOSE RANDOM (BEAKER) (test hfee=301) 97 mg/dL 70-105 CALCIUM (BEAKER) (test iwgi=343) 9.6 mg/dL 8.4-10.2 EGFR (BEAKER) (test eqyn=2515) 63 mL/min/1.73 sq m ESTIMATED GFR IS NOT ACCURATE CREATININE CLEARANCE IN PREDICTING GLOMERULAR FILTRATION RATE. ESTIMATED GFR IS NOT APPLICABLE FOR DIALYSIS PATIENTS. CBC W/PLT COUNT & AUTO [id number] 12:00:00* Test Item Value Reference Range Comments WHITE BLOOD CELL COUNT (BEAKER) (test jvmg=473) 10.6 K/ L 4.0-10.0 RED BLOOD CELL COUNT (BEAKER) (test rdfx=303) 5.45 M/ L 4.20-5.80 HEMOGLOBIN (BEAKER) (test xunx=092) 16.2 GM/DL 13.0-16.8 HEMATOCRIT (BEAKER) (test wjcw=925) 49.2 % 40.0-50.0 MEAN CORPUSCULAR VOLUME (BEAKER) (test wewe=829) 90.2 fL 82.0-98.0 MEAN CORPUSCULAR HEMOGLOBIN (BEAKER) (test ybxv=574) 29.7 pg 27.0-33.0 MEAN CORPUSCULAR HEMOGLOBIN CONC (BEAKER) (test cmzt=171) 32.9 GM/DL 32.0- 36.0 RED CELL DISTRIBUTION WIDTH (BEAKER) (test jxtj=140) 12.8 % 10.3-14.2 PLATELET COUNT (BEAKER) (test qvzc=352) 280 K/CU MM 150-430 MEAN PLATELET VOLUME (BEAKER) (test xoxx=544) 8.0 fL 6.5-10.5 NUCLEATED RED BLOOD CELLS (BEAKER) (test gosh=282) 0 /100 WBC 0-0 NEUTROPHILS RELATIVE PERCENT (BEAKER) (test lhro=799) 60 % LYMPHOCYTES RELATIVE PERCENT (BEAKER) (test upiu=187) 30 % MONOCYTES RELATIVE PERCENT (BEAKER) (test mawj=017) 8 % EOSINOPHILS RELATIVE PERCENT (BEAKER) (test xpcq=045) 2 % BASOPHILS RELATIVE PERCENT (BEAKER) (test dhwu=110) 0 % NEUTROPHILS ABSOLUTE COUNT (BEAKER) (test bsrb=532) 6.29 K/ L 1.80-8.00 LYMPHOCYTES ABSOLUTE COUNT (BEAKER) (test peyy=738) 3.17 K/ L 1.48-4.50 MONOCYTES ABSOLUTE COUNT (BEAKER) (test bidw=141) 0.87 K/ L 0.00-1.30 EOSINOPHILS ABSOLUTE COUNT (BEAKER) (test vpah=046) 0.21 K/ L 0.00-0.50 BASOPHILS ABSOLUTE COUNT (BEAKER) (test ufkr=824) 0.04 K/ L 0.00-0.20 0.00
--- NOTE | 2017-10-05 14:17 | Operative Report ---
DATE OF PROCEDURE: October 05, 2017 REFERRING PHYSICIAN: Dr. Peg Jung. PROCEDURES PERFORMED: Esophagogastroduodenoscopy with polypectomy and biopsies and colonoscopy with polypectomy. INDICATIONS FOR EGD: History of heartburn, abnormal barium swallow. INDICATIONS FOR COLONOSCOPY: Colorectal cancer screening. Personal history of colon polyps. MEDICATION: Patient was done under MAC. Please see anesthesiologist's note. PROCEDURE: With patient in left lateral decubitus position, the flexible fiberoptic Olympus gastroscope was introduced into the esophagus under direct visualization without any difficulty. There were some longitudinal furrows noted in the esophagus, which are compatible with eosinophilic esophagitis. There was some patchy erythema noted in the distal esophagus. Biopsies were obtained. The scope was then advanced with ease into the stomach and mucosa overlying the antrum revealed some patchy areas of erythema and some also patchy areas of somewhat atrophic mucosa and biopsies were obtained and sent to stain for H. pylori. Mucosa overlying the body revealed some diffuse intense erythema and low-grade edema and biopsies were obtained. An approximately 1 cm polyp was noted in the distal body of the stomach, lesser curvature and that was removed per snare electrocautery. An additional polyp minute was removed per biopsy forceps. The pylorus appeared to be of normal contour and shape, was intubated with ease, and the scope was advanced all the way to the second portion of the duodenum. The scope was then withdrawn slowly. Mucosa overlying the proximal second portion and the duodenal bulb appeared to be within normal limits. The scope was then withdrawn back into the stomach and retroflexed and the mucosa overlying the fundus and the cardia appeared to be within normal limits. The scope was then straightened out. The stomach was decompressed. The scope was subsequently withdrawn. Patient tolerated the procedure well. IMPRESSION 1. Distal esophagitis, rule out eosinophilic esophagitis. 2. Gastritis, biopsied. Biopsies sent to stain for Helicobacter pylori. 3. Gastric polyp approximately 1 cm, body lesser curvature, snared. PLAN: Follow up histology. Increase Protonix to 40 mg 1 p.o. a.c. b.i.d. Patient was then turned around. After adequate lubrication of the anal canal, a flexible fiberoptic Olympus colonoscope was inserted into the rectum with ease and advanced all the way to the cecum. The scope was then withdrawn slowly. Mucosa overlying the cecum appeared to be within normal limits. One polyp was snared from the ascending colon. One polyp was hot biopsied from the transverse colon. One polyp was hot biopsied from the descending colon. Diverticular disease was noted to involve the descending and the sigmoid colon. The rectum appeared to be within normal limits. The scope was then retroflexed into the distal rectum and small internal hemorrhoids were noted, none of which was actively bleeding. The scope was then straightened out. The rectosigmoid area as well as the distal rectal area were decompressed. Scope was subsequently withdrawn. Patient tolerated the procedure well. IMPRESSION 1. Ascending colon polyp, snared. 2. Transverse colon polyps, polyp hot biopsied. 3. Descending colon polyp, hot biopsied. 4. Diverticulosis. 5. Internal hemorrhoids, none actively bleeding. PLAN: Follow up histology. Initiate high-fiber, low-fat diet. Initiate high-fiber supplement. Patient will need a followup colonoscopy in 3 years. Job#: [id number] [facility] cc:Dr. Peg Jung
== END | disposition home or self-care (01) ==
LOC: OR 07:23
PROVIDERS: ATTEND Internal Medicine Gastroenterology
DX: K29.00 Acute gastritis without bleeding (principal); D12.0 Benign neoplasm of cecum; D14.0 Benign neoplasm of middle ear, nasal cavity and accessory sinuses; D12.3 Benign neoplasm of transverse colon; K31.7 Polyp of stomach and duodenum; K29.50 Unspecified chronic gastritis without bleeding; K21.0 Gastro-esophageal reflux disease with esophagitis; B96.81 Helicobacter pylori [H. pylori] as the cause of diseases classified elsewhere; K57.30 Diverticulosis of large intestine without perforation or abscess without bleeding; K64.8 Other hemorrhoids; F45.8 Other somatoform disorders; R93.8 Abnormal findings on diagnostic imaging of other specified body structures; I25.2 Old myocardial infarction; J45.909 Unspecified asthma, uncomplicated; E03.9 Hypothyroidism, unspecified; R94.5 Abnormal results of liver function studies; R03.0 Elevated blood-pressure reading, without diagnosis of hypertension; R07.89 Other chest pain; F41.9 Anxiety disorder, unspecified; Z01.810 Encounter for preprocedural cardiovascular examination; Z01.812 Encounter for preprocedural laboratory examination; Z79.82 Long term (current) use of aspirin; Z68.34 Body mass index [BMI] 34.0-34.9, adult; Z85.72 Personal history of non-Hodgkin lymphomas; Z95.5 Presence of coronary angioplasty implant and graft
CPT/HCPCS: 36415; 43239; 43251; 45384; 45385; 85025; 93005; J2001; J2250; J2765; 43450; 45378